=== PATIENT | female | born 1990 | race Caucasian/White ===

== ENCOUNTER 2024-06-30 18:47 | Emergency (ER) | payer OTHER ==
[2024-06-30] MEDS ORDERED: Oseltamivir 75 MG CAP ONE (20:06)
== END 2024-06-30 20:15 | disposition home or self-care (01) ==
LOC: NAV ERS 18:47
DX: O99.891 Other specified diseases and conditions complicating pregnancy (principal); J10.1 Influenza due to other identified influenza virus with other respiratory manifestations; Z3A.27 27 weeks gestation of pregnancy
CPT/HCPCS: 87428; 99283